=== PATIENT | male | born 1945 | race Caucasian/White ===

== ENCOUNTER 2019-11-30 10:28 | Outpatient (CLI) | payer MEDICARE, SELFPAY ==
--- NOTE | 2019-11-30 10:35 | MR_ITS ---
WS: [id number] MR abdomen with and without contrast. HISTORY: Pancreatic lesion follow-up. COMPARISON: 06/05/2019 and 01/31/2019. Multiplanar, multisequence imaging is performed through the abdomen. Contrast is provided. Previously described enlargement of the pancreas and changes of acute pancreatitis have resolved. The pancreas is normal size with no pseudocyst or abnormal enhancement. Pancreatic duct is top normal in 2 to 3 mm. There are no enhancing masses within the pancreas. Previously described possible intraduc casey papillary mucinous neoplasm at the uncinate process is not visualized on today's study. The visua lized liver is normal. There is no ascites or pseudocyst. No pleural effusions. Bilateral parapelvic cysts within each kidney have been previously described. No adenopathy or free f luid. Mild atherosclerosis of aorta. MR/MR abdomen wo/w con* [id number] IMPRESSION: 1. No pancreatic mass or intraductal papillary mucinous neoplasm is identified on today's MRI evaluation. 2. Resolved acute pancreatitis. No pseudocyst.
== END 2019-11-30 10:29 | disposition home or self-care (01) ==
LOC: RADSHAW 10:34
PROVIDERS: PCP Family Medicine; Visit Provider Family Medicine
DX: K86.9 Disease of pancreas, unspecified (principal); N28.1 Cyst of kidney, acquired; I70.0 Atherosclerosis of aorta
CPT/HCPCS: 74183; A9579

== ENCOUNTER → 2020-12-14 11:05 | Outpatient (BNVA) | payer OTHER, MEDICARE, SELFPAY | PROVIDERS: PCP Family Medicine; Visit Provider Internal Medicine Pulmonary Disease | DX: Z01.818 Encounter for other preprocedural examination (principal); Z20.822 Contact with and (suspected) exposure to COVID-19 | CPT/HCPCS: 87635 ==

== ENCOUNTER 2020-12-19 08:39 | Outpatient (CLI) | payer OTHER, MEDICARE, SELFPAY ==
--- NOTE | 2020-12-19 14:48 | PFTS_ITS ---
Date of Study:12/19/20 Date of Dictation: MECHANICS: Forced vital capacity (FVC) is reduced. Forced expiratory volume in one second (FEV1) is reduced. FEV1/FVC is reduced. FLOW VOLUME LOOP: Reduced flow at all lung volumes with significant scooping. LUNG VOLUMES: Total lung capacity (TLC) is reduced. Residual volume (RV) is normal. DIFFUSING CAPACITY FOR CARBON MONOXIDE: Severely reduced. INTERPRETATION: The postbronchodilator spirometry is consistent with very severe airflow obstruction. There is no significant postbronchodilator response. Lung volumes are consistent with restrictive lung disease. 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 Gas exchange (DLCO) is severely reduced. MTDD
== END 2020-12-19 08:40 | disposition home or self-care (01) ==
LOC: RT 08:43
PROVIDERS: PCP Family Medicine; Visit Provider Internal Medicine Pulmonary Disease
DX: J44.9 Chronic obstructive pulmonary disease, unspecified (principal)
CPT/HCPCS: 94060; 94618; 94726; 94729; J7611

== ENCOUNTER 2021-08-23 19:28 | Outpatient (CLI) | payer OTHER, MEDICARE, SELFPAY ==
[2021-08-23 19:48] LABS: NT Pro B Type Natriuretic Pept 110 pg/mL (0-450)
== END 2021-08-23 19:29 | disposition home or self-care (01) ==
PROVIDERS: PCP Family Medicine; Visit Provider Nurse Practitioner Family
DX: R60.0 Localized edema (principal)
CPT/HCPCS: 83880